=== PATIENT | male | born 1940 | race Caucasian/White ===

== ENCOUNTER → 2017-07-22 | Outpatient (CLI) | payer MEDICARE ==
[2017-07-22 10:38] LABS: Blood Urea Nitrogen 21 mg/dL (9-20); Non-African American GFR(MDRD) >60 (>60 ml/min/1.73 sqM)
--- NOTE | 2017-07-22 13:26 | CT ---
EXAMINATION TYPE: CT angio neck DATE OF EXAM: 07/22/2017 HISTORY: Carotid stenosis COMPARISON: NONE CT DLP: 507 mGycm. Automated Exposure Control for Dose Reduction was Utilized. TECHNIQUE: CTA scan of the neck is performed with IV Contrast, patient injected with 65 ml mL of Omn ipaque 350, axial images are obtained, coronal and sagittal reformatted images are reviewed. Three-D reconstructed images are created on an independent workstation and reviewed. FINDINGS: Carotid/Vascular Structures: The left common carotid artery is patent. Minimal atherosclerosis is see n of the ostia of the left common carotid artery at its origin. However, at the carotid bulb there is total occlusion of the left common carotid just distal to the carotid bifurcation extending througho ut the cervical portions and proximal intracranial portions of the carotid artery with reconstitution of flow noted at the supraclinoid portion related to an intact [place] of [place]. There is a focal short segment area of stenosis measuring 8 mm in length of 80-90% of the proximal ri ght internal carotid artery just distal to the carotid bifurcation/carotid bulb. This is caused mostl y by noncalcific plaquing with minimal calcific plaquing identified. The vertebral arteries are codominant. No identified aneurysm is seen of the visualized intracranial vasculature. Vertebral arteries appear patent. Other: Moderate centrilobular emphysematous changes are seen at the lung apices as well as reticular linear opacities and subsegmental atelectasis. Reticular opacities may represent pulmonary fibrosis. Osseous structures appear intact with multilevel degenerative disc disease of the cervical spine. IMPRESSION: 1. Complete occlusion of the left internal carotid artery originating at the carotid bifurcation and extending throughout the neck with reconstitution in the supraclinoid portion of the intracranial int ernal carotid artery from an intact [place] of [place]. 2. High-grade 80-90% stenosis of the right internal carotid artery just distal to the carotid bulb me asuring 8 mm in length. Surgical consultation is recommended. A [place] message has been communicated to Rosie Zabala MD via the [facility] system on 07/22/2017 1:24 PM, Message ID [id number].
== END | disposition home or self-care (01) ==
LOC: RADCTMAIN 09:57
PROVIDERS: ATTEND Internal Medicine Interventional Cardiology
DX: I65.23 Occlusion and stenosis of bilateral carotid arteries (principal); I77.89 Other specified disorders of arteries and arterioles
CPT/HCPCS: 82565; 84520; 70498; Q9967

== ENCOUNTER → 2017-07-22 | Outpatient (CLI) | payer MEDICARE | END | disposition home or self-care (01) | LOC: LABPAT 09:55 | PROVIDERS: ATTEND Orthopaedic Surgery | DX: Z01.812 Encounter for preprocedural laboratory examination (principal); M16.12 Unilateral primary osteoarthritis, left hip | CPT/HCPCS: 70498; 82565; 84520; 86850; 86900; 86901; 87070 ==

== ENCOUNTER → 2017-10-28 | Outpatient (CLI) | payer MEDICARE ==
[2017-10-28 11:41] LABS: Basophils % (A) 1 %; Eosinophils # (A) 0.2 k/uL (0-0.7); Eosinophils % (A) 2 %; HCT 44.4 % (39.0-53.0); HGB 14.7 gm/dL (13.0-17.5); Lymphocytes # (A) 1.6 k/uL (1.0-4.8); Lymphocytes % (A) 19 %; MCH 29.8 pg (25.0-35.0); MCHC 33.2 g/dL (31.0-37.0); MCV 89.7 fL (80.0-100.0); Mean Platelet Volume 7.7; Monocytes # (A) 0.5 k/uL (0-1.0); Monocytes % (A) 6 %; Neutrophils # (A) 6.3 k/uL (1.3-7.7); Neutrophils % (A) 72 %; Platelet Count 181 k/uL (150-450); RBC 4.95 m/uL (4.30-5.90); RDW 13.3 % (11.5-15.5); WBC 8.8 k/uL (3.8-10.6)
[2017-10-28 12:06] LABS: Potassium 4.3 mmol/L (3.5-5.1)
[2017-10-28 12:14] LABS: INR 1.1 (<1.2); Partial Thromboplastin Time 23.3 sec (22.0-30.0); Prothrombin Time 10.3 sec (9.0-12.0)
== END | disposition home or self-care (01) ==
LOC: LABPAT 11:00
PROVIDERS: ATTEND Orthopaedic Surgery
DX: Z01.812 Encounter for preprocedural laboratory examination (principal); M16.12 Unilateral primary osteoarthritis, left hip; Z79.01 Long term (current) use of anticoagulants
CPT/HCPCS: 36415; 80051; 85025; 85610; 85730; 86850; 86900; 86901; 87070

== ENCOUNTER 2017-11-07 10:25 | Inpatient (IN) | payer MEDICARE ==
[2017-11-03 10:25] VITALS: BMI 26.9
--- NOTE | 2017-11-06 16:09 | HP ---
HISTORY AND PHYSICAL Surgery 11/07/2017 Mynor Watts is 76-year-old patient seen with symptomatic left hip osteoarthritis. After treatment options were discussed, he elected to proceed with direct anterior left total hip arthroplasty. Consent regarding the procedure obtained. Cardiac clearance was provided by Dr. Zabala. Medical clearance provided by Dr. Osbaldo Koenig. PAST MEDICAL HISTORY: Insulin-dependent diabetes, cardiovascular disease. PAST SURGICAL HISTORY: Right total hip arthroplasty. Carotid endarterectomy. DAILY MEDICATIONS: Novolin insulin, omeprazole. ALLERGIES: None reported. SOCIAL HISTORY: Patient denies current tobacco use. PHYSICAL EXAMINATION: Evaluation left hip: There is limited range of motion with severe pain. Positive hip impingement sign. Straight leg raise is negative. Distal neurovascular exam is intact. RADIOGRAPHS: Left hip radiographs reveal severe osteoarthritis. IMPRESSION: 1. Left hip osteoarthritis. 2. Insulin-dependent diabetes. 3. Gastroesophageal reflux disease. 4. Cardiovascular disease. PLAN: Direct anterior left total hip arthroplasty. MMODL / IJN: [id number] /
[~2017-11-07 10:25] MED LIST: ACETAMINOPHEN TAB 500 MG TAB PO ONE; DEXAMETHASONE SOD PHOSPHATE 10 MG/ML 1 ML VIAL IV ONE; HYDROmorphone 0.5 MG/0.5 ML SYRINGE IVP PRN; MELOXICAM 7.5 MG TAB PO ONE; ONDANSETRON 4 MG/2 ML VIAL IVP ONE; TRANEXAMIC ACID 1,000 MG in SODIUM CHLORIDE 0.9% 50 ML IVPB ONE; ceFAZolin IN SWFI 2 GM/20 ML SYRINGE IVP ONE
[2017-11-07] MEDS ORDERED: LACTATED RINGERS 1,000 ML IV ONE ×2 (14:09→17:00)
[2017-11-07 14:10] LABS: Glucose,Whole Blood 118 mg/dL (75-99)
[2017-11-07] MEDS ORDERED: ROPIVACAINE 246.25 MG, EPINEPHrine 0.5 MG, KETOROLAC 30 MG, cloNIDine HCL/PF 80 MCG, WA... MISCELLANE ONE ×5 (14:44)
[2017-11-07] MEDS ORDERED: PROPOFOL 10 MG/ML 20 ML VIAL IV ONE (15:30)
[2017-11-07] MEDS ORDERED: TRANEXAMIC ACID 1,000 MG/10 ML VIAL ONE (15:30)
[2017-11-07] MEDS ORDERED: SUCCINYLCHOLINE CHLORIDE 100 MG/5 ML SYR IV ONE (15:30)
[2017-11-07] MEDS ORDERED: LIDOCAINE 1% INJ 10MG/ML (20 ML MDV) ONE (15:30)
[2017-11-07] MEDS ORDERED: HYDROmorphone (PF) 1 MG/ML ONE (15:30)
[2017-11-07] MEDS ORDERED: ROCURONIUM BROMIDE 10 MG/ML 10 ML VIAL IV ONE (15:30)
[2017-11-07] MEDS ORDERED: NEOSTIGMINE 1 MG/ML 10 ML VIAL ONE (15:30)
[2017-11-07] MEDS ORDERED: GLYCOPYRROLATE 0.2 MG/ML 2 ML VIAL ONE (15:30)
[2017-11-07] MEDS ORDERED: SODIUM CHLORIDE 0.9% 100 ML BAG ONE (15:30)
[2017-11-07] MEDS ORDERED: ePHEDrine SULFATE/0.9% NACL/PF 50 MG/5 ML SYRINGE IV ONE (15:30)
[2017-11-07] MEDS ORDERED: MIDAZOLAM 2 MG/2 ML VIAL ONE (15:30)
[2017-11-07] MEDS ORDERED: fentaNYL (PF) 50 MCG/ML 2 ML AMP ONE (15:30)
[2017-11-07] MEDS ORDERED: ceFAZolin 3,000 MG in SODIUM CHLORIDE 0.9% IRRIGATIO 3,000 ML IRRIGATION ONE (16:03)
[2017-11-07] MEDS ORDERED: HYDROcodone/APAP 7.5-325MG 1 EACH TAB PO PRN ×2 (17:31)
[2017-11-07] MEDS ORDERED: HYDROmorphone 0.5 MG/0.5 ML SYRINGE IVP PRN ×3 (17:31)
[2017-11-07] MEDS ORDERED: NALOXONE 0.4 MG/ML 1 ML VIAL IV PRN (17:31)
[2017-11-07] MEDS ORDERED: ONDANSETRON 4 MG/2 ML VIAL IVP PRN (17:31)
--- NOTE | 2017-11-07 17:31 | P.OP ---
Date of Procedure: 11/07/17 Preoperative Diagnosis: Left hip osteoarthritis Postoperative Diagnosis: Left hip osteoarthritis Procedure(s) Performed: Direct anterior left total hip arthroplasty Implants: 1. Depuy Corail KLA size 11 high offset collar press-fit femoral stem 2. Depuy pinnacle press-fit acetabular shell 56 mm 3. Depuy pinnacle polyethylene acetabular liner neutral 36 mm ID 56 mm OD 4. Depuy metal femoral head 36 mm -2 Anesthesia: ALA, local Surgeon: Jaylon Wilks Food Production Worker #1: Ke Lee Estimated Blood Loss (ml): 150 Pathology: other (Femoral head) Condition: stable Disposition: PACU Indications for Procedure: 76-year-old patient seen with symptomatic left hip osteoarthritis. After treatment options were discussed, he elected to proceed with total hip arthroplasty. Operative Findings: See description of procedure Description of Procedure: The patient was taken to the operative suite. Patient underwent a general anesthetic by the department of anesthesia. Patient was then transferred to the [place] table. Patient was given preoperative IV antibiotics and TXA. Both lower extremities were placed in standard leg spars. The hip was then prepped and draped in the normal sterile orthopedic fashion. A standard anterior incision was made beginning 3 cm lateral and 1 cm distal to the ASIS extending 10 cm. Dissection was then carried down through the subcutaneous soft tissues down to the fascia overlying the tensor fascia mary. An incision was now made through the fascia. Careful dissection was taken down exposing the tensor fascia mary muscle. A Cobra retractor was now placed along the medial femoral neck and a second one along the lateral femoral neck. The venous circumflex vessels were now identified, cauterized and clipped. We identified the anterior hip capsule. An incision was made through the hip capsule along the lateral border. Tag sutures were then placed along the anterior capsule and lateral capsule. We then performed a capsulotomy. Retractors were now placed around the femoral neck itself. A Cobra retractor was now placed along the anterior acetabulum. Good exposure was now noted of the femoral head/neck complex. Residual labrum was debrided out. We placed the extremity into 3 turns of fine traction. We were then able to introduce a skid in between the femoral head and acetabulum. A placed a awl into the femoral head. We took 2 turns of traction off the extremity. Rotation was now released. The femoral head was then dislocated without difficulty. Additional releasing was performed of the capsule. The head was then reduced. All traction was released. A femoral neck cut was now made with a sagittal saw. It was completed with an osteotome at the lateral neck area. The femoral head was now removed without difficulty. The extremity was now rotated to 60 of external rotation. It was locked in position. Residual labrum was now debrided out. Serial reaming was performed of the acetabulum. Once we reached the appropriate size and a trial was position and fit nicely. The appropriate size was now chosen opened and made available. The wound was irrigated with pulse lavage mechanical irrigation. The acetabular cup was introduced into the acetabulum without difficulty. The C-arm/fluoroscopy was now brought into the operative field. We made sure we had a true AP pelvic view. We now under direct C-arm/fluoroscopy introduced into the acetabular component with appropriate version and inclination. It was well seated and stable. The C-arm was pulled back. An appropriate liner was introduced and clicked into position. It was felt to be stable. At this point retractors were removed. The extremity was now placed into 120 external rotation with no traction. The leg was now dropped to the ground and adducted. Appropriate retractors were now positioned along the proximal femur. We also placed our femoral look into position. Additional capsular releasing was performed to gain access to the proximal femur. We now used a box osteotome. A canal finder was now utilized. Serial broaching was now performed until we reached the appropriate size with good overall rotational stability. Appropriate calcar planing was performed. A trial head/neck was placed into position. The hip was now reduced. The C-arm/fluoroscopy was brought back into the operative field. A spot film was obtained of the nonoperative hip. A spot film was obtained of the trial components. Overlays were performed, we noted good overall alignment and positioning for determining leg length. The C-arm/fluoroscopy was pulled back. Retractors were repositioned and the hip was dislocated. The leg was again taken down to the ground and adducted. Appropriate retractors were repositioned as well as the femoral hook. All trial components were removed. The wound was irrigated with pulse lavage mechanical irrigation. The deep soft tissues were infiltrated local analgesic. The femoral implant was opened along with the femoral head. The femoral implant was introduced with good purchase and fixation noted. The femoral head was introduced with good positioning and fixation noted. Retractors were now removed. The hip was now reduced. There appeared be good positioning of the hip. This was confirmed on fluoroscopy and spot films were obtained to document this. A second gram of TXA was given. Bipolar cautery had been utilized intermittently through the procedure for hemostasis. The wound was irrigated copiously with pulse lavage mechanical irrigation. The deep soft tissues were infiltrated with local analgesic. The superficial soft tissues were infiltrated local analgesic. The fascia was repaired with Vicryl suture. The subcutaneous soft tissues were repaired in layers with Vicryl suture. The skin was approximated with pernio/Dermabond. Sterile dressings were applied. Patient was then awakened, transferred to a bed and taken to recovery in stable condition. Graham SHIELDS assisted with the procedure.
--- NOTE | 2017-11-07 17:45 | FL ---
Fluoroscopy INDICATION: Pain FINDINGS: Fluoroscopy time: 27 seconds. Images obtained: 1. IMPRESSIONS: 1. Documentation of fluoroscopy.
[2017-11-07] MEDS ORDERED: INSULIN ASPART 100 UNIT/ML 1 ML 10 ML VIAL SQ ONE (18:13)
[2017-11-07 18:40] LABS: Glucose,Whole Blood 225 mg/dL (75-99)
[2017-11-07] MEDS: SODIUM CHLORIDE 0.9% 1,000 ML IV SCH (19:32)
[2017-11-07] MEDS ORDERED: SENNOSIDES-DOCUSATE SODIUM 1 EACH TAB PO SCH (21:00)
[2017-11-07] MEDS: LACTATED RINGERS 1,000 ML IV SCH (21:08)
[2017-11-07] MEDS: traMADol 50 MG TAB PO SCH ×2 (21:09→21:58)
[2017-11-07] MEDS: ceFAZolin IN SWFI 2 GM/20 ML SYRINGE IVP SCH (23:20)
[2017-11-08] MEDS: LACTATED RINGERS 1,000 ML IV SCH (04:40)
[2017-11-08 07:12] LABS: Glucose,Whole Blood 216 mg/dL (75-99)
[2017-11-08 07:31] LABS: Basophils % (A) 0 %; Eosinophils % (A) 0 %; HCT 34.4 % (39.0-53.0); Lymphocytes # (A) 1.4 k/uL (1.0-4.8); Lymphocytes % (A) 9 %; MCH 29.3 pg (25.0-35.0); MCHC 32.4 g/dL (31.0-37.0); MCV 90.3 fL (80.0-100.0); Mean Platelet Volume 7.9; Monocytes % (A) 7 %; Neutrophils # (A) 12.1 k/uL (1.3-7.7); Neutrophils % (A) 82 %; Platelet Count 167 k/uL (150-450); RDW 13.2 % (11.5-15.5); WBC 14.6 k/uL (3.8-10.6)
[2017-11-08 07:51] LABS: HGB 11.1 gm/dL (13.0-17.5)
[2017-11-08] MEDS: SODIUM CHLORIDE 0.9% 1,000 ML IV SCH (08:17)
[2017-11-08] MEDS: ceFAZolin IN SWFI 2 GM/20 ML SYRINGE IVP SCH (08:20)
[2017-11-08] MEDS: traMADol 50 MG TAB PO SCH ×2 (08:26→12:20)
[2017-11-08] MEDS ORDERED: MELOXICAM 7.5 MG TAB PO SCH (09:00)
[2017-11-08] MEDS ORDERED: ENOXAPARIN 40 MG/0.4 ML SYRINGE SQ SCH (09:00)
[2017-11-08] MEDS ORDERED: FAMOTIDINE 20 MG TAB PO SCH (09:00)
[2017-11-08] MEDS ORDERED: glipiZIDE 5 MG TAB PO SCH (09:45)
[2017-11-08] MEDS ORDERED: ATORVASTATIN 40 MG TAB PO SCH (09:45)
[2017-11-08] MEDS ORDERED: PANTOPRAZOLE 40 MG TABLET PO SCH (09:45)
[2017-11-08 11:55] LABS: Glucose,Whole Blood 225 mg/dL (75-99)
--- NOTE | 2017-11-08 12:00 | P.PN ---
Subjective Progress Note Date: 11/08/17 Principal diagnosis: Status post left total hip arthroplasty Patient seen today resting in his hospital bed, he appears comfortable. He's done well with physical therapy. Urinary catheter was removed, he was straight cathed initially, he has began to void on his own. He denies any headaches, lightheadedness, chest pain or shortness of breath. Objective - Vital Signs Vital signs: Vital Signs Temp 98.1 F 11/08/17 06:45 Pulse 68 11/08/17 06:45 Resp 16 11/08/17 07:29 BP 134/63 11/08/17 06:45 Pulse Ox 95 11/08/17 06:45 Intake & Output 11/07/17 11/08/17 11/08/17 18:59 06:59 18:59 Intake Total 1801 630 500 Output Total 150 500 250 Balance 1651 130 250 Intake: IV 1801 500 Sodium Chloride 0.9% 1, 500 000 ml @ 50 mls/hr IV . Q20H GILLES Rx#:[id number] Intake, IV Titration 150 Amount Sodium Chloride 0.9% 1, 150 000 ml @ 50 mls/hr IV . Q20H GILLES Rx#:[id number] Oral 480 Output: Urine 500 250 Estimated Blood Loss 150 - Exam Left lower extremity: Incision is clean, dry, and intact. The [prineo tape] is in good condition. [ There is minimal soft tissue swelling and ecchymosis surrounding the medial and lateral aspects of the incision.] Calf is soft, no tenderness with palpation. Plantar flexion, dorsiflexion, EHL, FHL are intact. Sensory exam to light touch throughout the extremity is intact, [dorsal pedis pulses 2+.] - Labs CBC & Chem 7: 11/08/17 06:38 Labs: Abnormal Lab Results - Last 24 Hours (Table) 11/07/17 11/07/17 11/08/17 Range/Units 14:06 18:11 06:38 WBC 14.6 H (3.8-10.6) k/uL RBC 3.80 L (4.30-5.90) m/uL Hgb 11.1 L D (13.0-17.5) gm/dL Hct 34.4 L (39.0-53.0) % Neutrophils # 12.1 H (1.3-7.7) k/uL POC Glucose (mg/dL) 118 H 225 H (75-99) mg/dL 11/08/17 11/08/17 Range/Units 07:10 11:52 WBC (3.8-10.6) k/uL RBC (4.30-5.90) m/uL Hgb (13.0-17.5) gm/dL Hct (39.0-53.0) % Neutrophils # (1.3-7.7) k/uL POC Glucose (mg/dL) 216 H 225 H (75-99) mg/dL Assessment and Plan Plan: Assessment: 1. Postop day #1 status post left total hip arthroplasty Plan: 1. Pain control, continue supportive oral medication 2. Wound care instructions were discussed 3. GI and DVT prophylaxis, will resume Plavix and aspirin after discharge 4. Medical recommendations 5. Home therapy and nursing after discharge 6. Discharge planning: Patient likely be discharged home today pending he continues to urinate on his own Time with Patient: Less than 30
--- NOTE | 2017-11-08 12:03 | P.DS ---
Providers Date of admission: 11/07/17 13:24 Expected date of discharge: 11/08/17 Attending physician: Jaylon Wilks Consults: 11/07/17 17:31 Consult Physician Routine Consulting Provider: Osbaldo Koenig Consult Reason/Comments: Medical management Do you want consulting provider notified?: Yes Primary care physician: Stated None Hospital Course: Date of admission: 11/07/2017 Date of discharge: 11/08/2017 Admission diagnosis: Status post left total hip arthroplasty Discharge diagnosis: Same Attending physician: Dr. Wilks Surgical procedures: Left total hip arthroplasty Brief history: Patient is a 76-year-old male with a history of progressive primary left hip osteoarthritis. At this point patient has failed conservative treatment measures and has opted to proceed with a elective left total hip arthroplasty. Hospital course: Details of patient's surgery can be found in operative report. Patient tolerated the procedure well and was subsequently transported to orthopedic floor. Patient's orthopeidc and medical care was provided daily. Patient had daily laboratory tests performed for evaluation of overall blood counts. Patient had daily physical therapy to include strengthening range of motion as well as education with walker ambulation. Patient was treated with Lovenox for their postoperative DVT prophylaxis during their inpatient stay. Patient was noted to have a relatively uneventful postoperative course. Patient reported satisfactory pain control with oral pain medications by postoperative day 0. Patient showed satisfactory progress with physical therapy. Patient moved steadily through the program and had no difficulty meeting the goals by postoperative day 1. Given patient's otherwise satisfactory course and having met physical therapy goals, plan is to discharge patient home on postoperative day 1. Discharge condition/disposition: Patient will be discharged home in stable condition. Discharge medications: Instructions are given on resumption of patient's normal daily medications per primary care recommendation, in addition patient will be prescribed . Discharge instructions: 1. Wound care and infection precautions, keep incision dry and covered while showering, no lotions, creams, moisturizers. No soaking, tubs, pools, hottubs. Do not scrub over the incision. 2. Weight-bear as tolerated with walker / cane until follow-up. 3. Ice and elevate when necessary. Do not exceed 20 minutes per hour with ice pack. 4. Utilize compression sleeve until seen at first follow up appointment. 5. Visiting nursing care. 6. Home physical therapy. 7. Pain meds and anticoagulants per prescription. 8. Pain medication has potential to cause constipation. Increase oral fluid and fiber intake. Contact primary care provider if you have not had a bowel movement within 48 hours after discharge 9. No anti-inflammatory medication until discussed at first post operative visit, this including Motrin, Aleve, Mobic, Diclofenac. 10. Follow up in office at 2 weeks postop with Graham Lee PA-C 11. Follow up with your primary care doctor 7-10 days after discharge. 12. Contact [facility] with any questions, . Procedures: Left total hip arthroplasty Patient Condition at Discharge: Good Plan - Discharge Summary Discharge Rx Participant: Yes New Discharge Prescriptions: New Docusate [Colace] 100 mg PO DAILY #30 capsule traMADol HCl [Ultram] 50 mg PO Q6H PRN #40 tab PRN Reason: Pain Aspirin 325 mg PO BID #60 tab No Action Simvastatin [Zocor] 80 mg PO DAILY Omeprazole [PriLOSEC] 20 mg PO AC-BRKFST Insulin NPH Human Isophane [NovoLIN N] 35 unit SQ HS glipiZIDE [Glucotrol] 5 mg PO AC-BID Clopidogrel [Plavix] 75 mg PO DAILY glipiZIDE [Glucotrol] 10 mg PO HS Discharge Medication List Insulin NPH Human Isophane [NovoLIN N] 35 unit SQ HS 10/15/15 [History] Omeprazole [PriLOSEC] 20 mg PO AC-BRKFST 10/15/15 [History] Simvastatin [Zocor] 80 mg PO DAILY 10/15/15 [History] Clopidogrel [Plavix] 75 mg PO DAILY 07/25/17 [History] glipiZIDE [Glucotrol] 5 mg PO AC-BID 07/25/17 [History] glipiZIDE [Glucotrol] 10 mg PO HS 11/03/17 [History] Aspirin 325 mg PO BID #60 tab 11/08/17 [Rx] Docusate [Colace] 100 mg PO DAILY #30 capsule 11/08/17 [Rx] traMADol HCl [Ultram] 50 mg PO Q6H PRN #40 tab 11/08/17 [Rx] Follow up Appointment(s)/Referral(s): Ke Lee PAC [PHYSICIAN SENIOR TELECOMMUNICATIONS TECHNICIAN] - 11/23/17 2:20 pm [facility] Visiting Nurse, [NON-STAFF] - Patient Instructions/Handouts: Anterior Hip Replacement (DC) Activity/Diet/Wound Care/Special Instructions: Orthopedic Discharge Instructions: 1. Wound care and infection precautions, keep incision dry and covered while showering, no lotions, creams, moisturizers. No soaking, pools, hot tubs. Do not scrub over incision. 2. Weight-bear as tolerated with walker / cane until follow-up. 3. Ice and elevate when necessary. Do not exceed 20 minutes per hour with ice pack. 4. Utilize compression sleeve until seen at first follow up appointment. 5. Visiting nursing care. 6. Home physical therapy. 7. Pain meds and anticoagulants per prescription. 8. Pain medication has potential to cause constipation. Increase oral fluid and fiber intake. Contact primary care provider if you have not had a bowel movement within 48 hours after discharge. 9. No anti-inflammatory medication until discussed at first post operative visit, this including Motrin, Aleve, Mobic, Diclofenac. 10. Follow up in office at 2 weeks postop with Graham Lee PA-C 11. Follow up with your primary care doctor 7-10 days after discharge. 12. Contact [facility] with any questions, . Discharge Disposition: HOME WITH HOME HEALTH SERVICES
[2017-11-08 14:51] VITALS: BP 129/64; PULSE 83; RESP 18; TEMP 97.9
[2017-11-08] MEDS ORDERED: INSULIN NPH 300 UNIT/3 ML VIAL SQ SCH (21:00)
[2017-11-08] MEDS ORDERED: glipiZIDE 10 MG TAB PO SCH (21:00)
== END 2017-11-08 15:12 | disposition home health service (06) | DRG 470 ==
LOC: 2ORMAIN 13:24 → 3SUR 17:23
PROVIDERS: ADMIT Orthopaedic Surgery; ATTEND Orthopaedic Surgery
PROC: 0SRB02A Replacement of Left Hip Joint with Metal on Polyethylene Synthetic Substitute, Uncemented, Open Approach (ICD-10-PCS; principal; 2017-11-07 16:15)
DX: M16.12 Unilateral primary osteoarthritis, left hip (principal); E11.9 Type 2 diabetes mellitus without complications; Z96.641 Presence of right artificial hip joint; I25.10 Atherosclerotic heart disease of native coronary artery without angina pectoris; K21.9 Gastro-esophageal reflux disease without esophagitis; Z79.4 Long term (current) use of insulin; Z79.899 Other long term (current) drug therapy
CPT/HCPCS: 73501; 85025; 86850; 86900; 86901; 88300

== ENCOUNTER → 2018-07-12 | Day surgery (SDC) | payer MEDICARE, OTHER ==
[2018-07-06 10:14] VITALS: BMI 25.8
[~2018-07-12] MED LIST changes: -ACETAMINOPHEN TAB 500 MG TAB PO ONE; +BUPIVACAIN-EPI 0.25%-1:200,000 30 ML VIAL SQ ONE; +HEPARIN SODIUM,PORCINE 5,000 UNIT/ML 1 ML VIAL SQ ONE; +HYDROcodone/APAP 5-325MG 1 EACH TAB PO PRN; -HYDROmorphone 0.5 MG/0.5 ML SYRINGE IVP PRN; +LACTATED RINGERS 1,000 ML IV SCH; +LIDOCAINE 1% INJ 10MG/ML (20 ML MDV) ONE; -MELOXICAM 7.5 MG TAB PO ONE; +NALOXONE 0.4 MG/ML 1 ML VIAL IV PRN; +PROPOFOL 10 MG/ML 20 ML VIAL IV ONE; +ROCURONIUM BROMIDE 10 MG/ML 10 ML VIAL IV ONE; +ROPIVACAINE 5 MG/ML 30 ML VIAL ONE; +SCOPOLAMINE 1.5MG/72HR PATCH TRANSDERM ONE; +SUCCINYLCHOLINE CHLORIDE 100 MG/5 ML SYR IV ONE; +TAMSULOSIN 0.4 MG CAP.ER.24H PO STA; -TRANEXAMIC ACID 1,000 MG in SODIUM CHLORIDE 0.9% 50 ML IVPB ONE; +ePHEDrine SULFATE/0.9% NACL/PF 50 MG/5 ML SYRINGE IV ONE; +fentaNYL (PF) 50 MCG/ML 2 ML AMP ONE
[2018-07-12 06:44] LABS: Glucose,Whole Blood 104 mg/dL (75-99)
--- NOTE | 2018-07-12 07:45 | P.GSHP ---
History of Present Illness H&P Date: 07/12/18 Chief Complaint: Bilateral hernia Please refer to office H&P. Patient presents with complaints of a left groin bulge. History of previous left open inguinal repair. Pain even with utilizing a truss lately. Was found incidentally to have a right inguinal hernia as well. No nausea or vomiting. No change in bowel habits. Past Medical History Past Medical History: Diabetes Mellitus, Eye Disorder, GERD/Reflux, Hearing Disorder / Deafness, Hyperlipidemia, Memory Impairment, Osteoarthritis (OA), Sleep Apnea/CPAP/BIPAP Additional Past Medical History / Comment(s): Uses CPAP, heart murmur, bilateral cataracts. History of Any Multi-Drug Resistant Organisms: None Reported Past Surgical History: Hernia Repair, Joint Replacement, Orthopedic Surgery Additional Past Surgical History / Comment(s): Bilateral hip replacements, arthroscopy left shoulder, numerous precancerous lesions removed from face and arms. Past Anesthesia/Blood Transfusion Reactions: No Reported Reaction Past Psychological History: No Psychological Hx Reported Smoking Status: Former smoker Past Alcohol Use History: None Reported Additional Past Alcohol Use History / Comment(s): Quit smoking 38 yrs. ago, 3ppd for 30 yrs. Past Drug Use History: None Reported - Past Family History Mother Sister(s) Family Medical History: Cancer Medications and Allergies Home Medications Medication Instructions Recorded Confirmed Type Insulin NPH Human Isophane 35 unit SQ HS 10/15/15 07/12/18 History [NovoLIN N] Omeprazole [PriLOSEC] 20 mg PO AC-BRKFST 10/15/15 07/06/18 History Simvastatin [Zocor] 80 mg PO DAILY 10/15/15 07/06/18 History Clopidogrel [Plavix] 75 mg PO DAILY 07/25/17 07/06/18 History glipiZIDE [Glucotrol] 5 mg PO AC-BID 07/25/17 07/06/18 History glipiZIDE [Glucotrol] 10 mg PO HS 11/03/17 07/12/18 History Docusate [Colace] 100 mg PO DAILY #30 capsule 11/08/17 07/06/18 Rx Aspirin [Adult Low Dose Aspirin EC] 81 mg PO DAILY 07/06/18 07/06/18 History Allergies Allergy/AdvReac Type Severity Reaction Status Date / Time No Known Allergies Allergy Verified 07/12/18 06:21 Surgical - Exam Vital Signs Temp Pulse Resp BP Pulse Ox 98.2 F 58 L 16 127/59 95 07/12/18 06:24 07/12/18 06:24 07/12/18 06:24 07/12/18 06:24 07/12/18 06:24 Physical exam: General: Well-developed, well-nourished HEENT: Normocephalic, sclerae nonicteric Abdomen: Nontender, nondistended small reducible right hernia, moderate-sized reducible left recurrent inguinal hernia Extremities: No edema Neuro: Alert and oriented Results - Labs Abnormal Lab Results - Last 24 Hours (Table) 07/12/18 Range/Units 06:42 POC Glucose (mg/dL) 104 H (75-99) mg/dL Assessment and Plan (1) Inguinal hernia Narrative/Plan: Will proceed with laparoscopic, possible open repair. Risks of bleeding, infection, recurrence, bladder and bowel injury, numbness, nerve injury, conversion to an open procedure were discussed with the patient. The patient understands and wishes to proceed. Current Visit: Yes Status: Acute Code(s): K40.90 - UNIL INGUINAL HERNIA, W/ O OBST OR GANGR, NOT SPCF RECUR SNOMED Code(s): 273143435
[2018-07-12 09:32] LABS: Glucose,Whole Blood 141 mg/dL (75-99)
--- NOTE | 2018-07-12 10:13 | P.ONQ ---
Anesthesiology Proc Note - PNB - Peripheral Nerve Block Performed Bilateral Transversus Abdominis Single Time Out Performed: Yes Procedure Start Time: 07:21 Procedure Stop Time: 07:30 Indication: Acute Post-Operative Pain, Analgesia, Dx/Pain Location, Requested by physician Sedation Type: Sedate with meaningful contact maintained Preparation: Sterile Prep Position: Supine Catheter: None Needle Types: [employer] Needle Size: 50mm (2") Needle Gauge: 20 Technique: Ultrasound Injectate: 0.5% Ropivacaine (see comment for volume) Blood Aspirated: No Pain Paresthesia on Injection Noted: No Resistance on Injection: Normal Events: Uneventful and Well Tolerated
[2018-07-12 10:15] VITALS: TEMP 99.2
[2018-07-12 10:23] LABS: Glucose,Whole Blood 183 mg/dL (75-99)
[2018-07-12] MEDS: HYDROmorphone 1 MG/ML 1 ML SYRINGE IVP PRN ×2 (10:28→10:46)
--- NOTE | 2018-07-12 10:29 | P.OP ---
Date of Procedure: 07/12/18 Procedure(s) Performed: PREOPERATIVE DIAGNOSIS: Recurrent left inguinal hernia, right inguinal hernia POSTOPERATIVE DIAGNOSIS: Same PROCEDURE: Laparoscopic repair recurrent left inguinal hernia and right inguinal hernia with the da Monster robot assistance with mesh SURGEON: Joyce EBL: Minimal ANESTHESIA: General COMPLICATIONS: None OPERATIVE PROCEDURE: Patient was placed in the operating table in the supine position. The patient was placed under general anesthesia. The patient was then placed in lithotomy. The abdomen was prepped and draped in usual sterile fashion. A vertical infraumbilical incision was made. The fascia was retracted anteriorly with Geetha forceps. The Veress needle was inserted. The saline drop test was normal. Insufflation took place to 15 mmHg. A 5 mm trocar was placed into the peritoneal cavity. This was later switched to a 8 mm trocar. 2 additional 8 mm trochars were placed in the right upper quadrant and left upper quadrant under visualization. The robotic arms were then brought in and docked into place. The fenestrated bipolar was used in the left arm and the laparoscopic luigi was utilized in the right arm. A 30 8 mm scope was used in the up position. The peritoneal cavity was inspected. The patient had a fairly large defect at the indirect space on the right. An additional large indirect hernia was seen on the left containing sigmoid colon. The right side was first addressed. The peritoneum was incised in a horizontal fashion cephalad to the internal inguinal ring. Following that careful dissection of the preperitoneal space took place. This took place using both electrocautery, sharp dissection but primarily blunt dissection. Visualization of the pubic tubercle and Mikael's ligament took place medially. Full dissection took place laterally as well. The hernia sac was fully dissected. At that time the left side was addressed in a similar fashion. This dissection was somewhat more challenging because of scarring from previous herniorrhaphy. I could visualize some sutures at the apex of the hernia sac. The sac was however fully reduced without difficulty. Once we had adequate space the 15 x 10 progrip mesh was advanced into the preperitoneal space and flattened out appropriately to cover all potential hernia sites bilaterally. No sutures were used. The peritoneal defect was then closed using a locking 2-0 VLok suture bilaterally. The sutures were then removed. The pneumoperitoneum was then evacuated. The skin of all 3 sites was closed using a 4-0 Monocryl stitch. Skin glue was then applied. DISPOSITION: Stable to recovery room
[2018-07-12 11:40] LABS: Glucose,Whole Blood 162 mg/dL (75-99)
[2018-07-12 11:59] VITALS: PULSE 70; RESP 18
[2018-07-12 13:02] VITALS: BP 175/83
== END ==
LOC: OR 05:38
PROVIDERS: ATTEND Surgery
DX: K40.91 Unilateral inguinal hernia, without obstruction or gangrene, recurrent (principal); K40.90 Unilateral inguinal hernia, without obstruction or gangrene, not specified as recurrent; K21.9 Gastro-esophageal reflux disease without esophagitis; E11.9 Type 2 diabetes mellitus without complications; Z79.4 Long term (current) use of insulin; G47.33 Obstructive sleep apnea (adult) (pediatric); Z99.89 Dependence on other enabling machines and devices; E78.5 Hyperlipidemia, unspecified; H91.90 Unspecified hearing loss, unspecified ear; R41.3 Other amnesia; M19.90 Unspecified osteoarthritis, unspecified site; Z87.891 Personal history of nicotine dependence; Z79.82 Long term (current) use of aspirin; Z79.02 Long term (current) use of antithrombotics/antiplatelets; Z79.891 Long term (current) use of opiate analgesic; Z79.899 Other long term (current) drug therapy
CPT/HCPCS: 49650; 49651; S2900; 64488

== ENCOUNTER 2020-03-30 10:59 | Emergency (ER) | payer OTHER ==
[2020-03-30] MEDS ORDERED: DEXTROSE 50% SYRINGE 50 ML IVP STA (11:19)
[2020-03-30 11:27] LABS: Glucose,Whole Blood 56 mg/dL (75-99)
[2020-03-30 11:41] LABS: Basophils % (A) 0 %; Eosinophils # (A) 0.3 k/uL (0-0.7); Eosinophils % (A) 3 %; HCT 42.8 % (39.0-53.0); HGB 13.6 gm/dL (13.0-17.5); Lymphocytes # (A) 1.4 k/uL (1.0-4.8); Lymphocytes % (A) 18 %; MCH 28.7 pg (25.0-35.0); MCHC 31.9 g/dL (31.0-37.0); MCV 89.9 fL (80.0-100.0); Mean Platelet Volume 8.1; Monocytes # (A) 0.6 k/uL (0-1.0); Monocytes % (A) 7 %; Neutrophils # (A) 5.7 k/uL (1.3-7.7); Neutrophils % (A) 70 %; Platelet Count 179 k/uL (150-450); RBC 4.76 m/uL (4.30-5.90); RDW 13.7 % (11.5-15.5); WBC 8.2 k/uL (3.8-10.6)
[2020-03-30 11:47] LABS: Albumin 3.9 g/dL (3.5-5.0); Calcium 8.9 mg/dL (8.4-10.2); Potassium 4.5 mmol/L (3.5-5.1); Total Bilirubin 0.4 mg/dL (0.2-1.3); Total Protein 6.9 g/dL (6.3-8.2)
[2020-03-30 11:50] LABS: Glucose,Whole Blood 222 mg/dL (75-99)
[2020-03-30 11:52] LABS: Partial Thromboplastin Time 24.7 sec (22.0-30.0); Prothrombin Time 10.5 sec (9.0-12.0)
[2020-03-30 12:14] LABS: Glucose,Whole Blood 149 mg/dL (75-99)
--- NOTE | 2020-03-30 12:25 | ED ---
Altered Mental Status HPI - General Chief Complaint: Altered Mental Status Stated Complaint: disoriented Time Seen by Provider: 03/30/20 11:09 Source: patient, RN notes reviewed Mode of arrival: wheelchair Limitations: no limitations - History of Present Illness Initial Comments: 79-year-old male presents emergency Department with chief complaint of con fusion. Patient has had some intermittent bouts of occasional glass several weeks to months but states that today it seemed to last longer. Patient was sitting in orthodoxy did not know where he was at, disorientated or why he was there. Patient states that he seems to be improving at this time. Patient has a known diabetic, history of hyperlipidemia. Patient is on insulin for his diabetes. He went to headache, blurred vision, focal weakness. Patient able to ambulate without difficulty. Patient offers no other complaints. - Related Data Home Medications Medication Instructions Recorded Confirmed Insulin NPH Human Isophane 35 unit SQ HS 10/15/15 03/30/20 [NovoLIN N] Omeprazole [PriLOSEC] 20 mg PO AC-BRKFST 10/15/15 03/30/20 Simvastatin [Zocor] 80 mg PO HS 10/15/15 03/30/20 Clopidogrel [Plavix] 75 mg PO DAILY 07/25/17 03/30/20 glipiZIDE [Glucotrol] 5 mg PO DAILY 07/25/17 03/30/20 Aspirin [Adult Low Dose Aspirin EC] 81 mg PO DAILY 07/06/18 03/30/20 Allergies Allergy/AdvReac Type Severity Reaction Status Date / Time No Known Allergies Allergy Verified 03/30/20 12:18 Review of Systems ROS Statement: Those systems with pertinent positive or pertinent negative responses have been documented in the HPI. ROS Other: All systems not noted in ROS Statement are negative. Past Medical History Past Medical History: Diabetes Mellitus, Eye Disorder, GERD/Reflux, Hearing Disorder / Deafness, Hyperlipidemia, Memory Impairment, Osteoarthritis (OA), Sleep Apnea/CPAP/BIPAP Additional Past Medical History / Comment(s): Uses CPAP, heart murmur, bilateral cataracts. History of Any Multi-Drug Resistant Organisms: None Reported Past Surgical History: Hernia Repair, Joint Replacement, Orthopedic Surgery Additional Past Surgical History / Comment(s): Bilateral hip replacements, arthroscopy left shoulder, numerous precancerous lesions removed from face and arms. Past Anesthesia/Blood Transfusion Reactions: No Reported Reaction Past Psychological History: No Psychological Hx Reported Smoking Status: Never smoker Past Alcohol Use History: None Reported Past Drug Use History: None Reported - Past Family History Mother Sister(s) Family Medical History: Cancer General Exam Limitations: no limitations General appearance: alert, in no apparent distress, other (Patient awake alert and orientated) Head exam: Present: atraumatic, normocephalic, normal inspection Eye exam: Present: normal appearance, PERRL, EOMI. Absent: scleral icterus, conjunctival injection, periorbital swelling ENT exam: Present: normal exam, normal oropharynx, mucous membranes moist Neck exam: Present: normal inspection, full ROM. Absent: tenderness, meningismus, lymphadenopathy Respiratory exam: Present: normal lung sounds bilaterally. Absent: respiratory distress, wheezes, rales, rhonchi, stridor Cardiovascular Exam: Present: regular rate, normal rhythm, normal heart sounds. Absent: systolic murmur, diastolic murmur, rubs, gallop, clicks GI/Abdominal exam: Present: soft, normal bowel sounds. Absent: distended, tenderness, guarding, rebound, rigid Extremities exam: Present: other (upper and lower extremity strength equal bilaterally 5/5 neurovascular intact) Neurological exam: Present: alert, oriented X3, CN II-XII intact, reflexes normal. Absent: motor sensory deficit Skin exam: Present: warm, dry, intact, normal color. Absent: rash Course Vital Signs 03/30/20 11:01 Temperature 97.8 F Pulse Rate 63 Respiratory 16 Rate Blood Pressure 161/73 O2 Sat by Pulse 96 Oximetry Medical Decision Making - Medical Decision Making 79-year-old male presented for about of confusion. Patient's blood sugar found to be 50. Patient was given an amp of dextrose and which symptoms immediately resolved. Workup including CT labs unremarkable otherwise. Patient is grossly discharge is stable he states he does normal baseline I did advise him to closely monitor his blood sugar and return for any worsening symptoms. - Lab Data Result diagrams: 03/30/20 11:25 03/30/20 11:25 Lab Results 03/30/20 03/30/20 03/30/20 Range/Units 11:18 11:25 11:25 WBC 8.2 (3.8-10.6) k/uL RBC 4.76 (4.30-5.90) m/uL Hgb 13.6 (13.0-17.5) gm/dL Hct 42.8 (39.0-53.0) % MCV 89.9 (80.0-100.0) fL MCH 28.7 (25.0-35.0) pg MCHC 31.9 (31.0-37.0) g/dL RDW 13.7 (11.5-15.5) % Plt Count 179 (150-450) k/uL Neutrophils % 70 % Lymphocytes % 18 % Monocytes % 7 % Eosinophils % 3 % Basophils % 0 % Neutrophils # 5.7 (1.3-7.7) k/uL Lymphocytes # 1.4 (1.0-4.8) k/uL Monocytes # 0.6 (0-1.0) k/uL Eosinophils # 0.3 (0-0.7) k/uL Basophils # 0.0 (0-0.2) k/uL PT 10.5 (9.0-12.0) sec INR 1.0 (<1.2) APTT 24.7 (22.0-30.0) sec Sodium (137-145) mmol/L Potassium (3.5-5.1) mmol/L Chloride (98-107) mmol/L Carbon Dioxide (22-30) mmol/L Anion Gap mmol/L BUN (9-20) mg/dL Creatinine (0.66-1.25) mg/dL Est GFR (CKD-EPI)AfAm (>60 ml/min/1.73 sqM) Est GFR (CKD-EPI)NonAf (>60 ml/min/1.73 sqM) Glucose (74-99) mg/dL POC Glucose (mg/dL) 56 L (75-99) mg/dL POC Glu Corn Cooker RISHABH Antwan Ingram Calcium (8.4-10.2) mg/dL Total Bilirubin (0.2-1.3) mg/dL AST (17-59) U/L ALT (4-49) U/L Alkaline Phosphatase (38-126) U/L Creatine Kinase (55-170) U/L Troponin I (0.000-0.034) ng/mL Total Protein (6.3-8.2) g/dL Albumin (3.5-5.0) g/dL 03/30/20 03/30/20 03/30/20 Range/Units 11:25 11:25 11:30 WBC (3.8-10.6) k/uL RBC (4.30-5.90) m/uL Hgb (13.0-17.5) gm/dL Hct (39.0-53.0) % MCV (80.0-100.0) fL MCH (25.0-35.0) pg MCHC (31.0-37.0) g/dL RDW (11.5-15.5) % Plt Count (150-450) k/uL Neutrophils % % Lymphocytes % % Monocytes % % Eosinophils % % Basophils % % Neutrophils # (1.3-7.7) k/uL Lymphocytes # (1.0-4.8) k/uL Monocytes # (0-1.0) k/uL Eosinophils # (0-0.7) k/uL Basophils # (0-0.2) k/uL PT (9.0-12.0) sec INR (<1.2) APTT (22.0-30.0) sec Sodium 139 (137-145) mmol/L Potassium 4.5 (3.5-5.1) mmol/L Chloride 109 H (98-107) mmol/L Carbon Dioxide 22 (22-30) mmol/L Anion Gap 8 mmol/L BUN 22 H (9-20) mg/dL Creatinine 1.15 (0.66-1.25) mg/dL Est GFR (CKD-EPI)AfAm 70 (>60 ml/min/1.73 sqM) Est GFR (CKD-EPI)NonAf 61 (>60 ml/min/1.73 sqM) Glucose 59 L (74-99) mg/dL POC Glucose (mg/dL) 222 H (75-99) mg/dL POC Glu Corn Cooker ID Antwan Ingram Calcium 8.9 (8.4-10.2) mg/dL Total Bilirubin 0.4 (0.2-1.3) mg/dL AST 24 (17-59) U/L ALT 16 (4-49) U/L Alkaline Phosphatase 79 (38-126) U/L Creatine Kinase 151 (55-170) U/L Troponin I <0.012 (0.000-0.034) ng/mL Total Protein 6.9 (6.3-8.2) g/dL Albumin 3.9 (3.5-5.0) g/dL 03/30/20 Range/Units 12:13 WBC (3.8-10.6) k/uL RBC (4.30-5.90) m/uL Hgb (13.0-17.5) gm/dL Hct (39.0-53.0) % MCV (80.0-100.0) fL MCH (25.0-35.0) pg MCHC (31.0-37.0) g/dL RDW (11.5-15.5) % Plt Count (150-450) k/uL Neutrophils % % Lymphocytes % % Monocytes % % Eosinophils % % Basophils % % Neutrophils # (1.3-7.7) k/uL Lymphocytes # (1.0-4.8) k/uL Monocytes # (0-1.0) k/uL Eosinophils # (0-0.7) k/uL Basophils # (0-0.2) k/uL PT (9.0-12.0) sec INR (<1.2) APTT (22.0-30.0) sec Sodium (137-145) mmol/L Potassium (3.5-5.1) mmol/L Chloride (98-107) mmol/L Carbon Dioxide (22-30) mmol/L Anion Gap mmol/L BUN (9-20) mg/dL Creatinine (0.66-1.25) mg/dL Est GFR (CKD-EPI)AfAm (>60 ml/min/1.73 sqM) Est GFR (CKD-EPI)NonAf (>60 ml/min/1.73 sqM) Glucose (74-99) mg/dL POC Glucose (mg/dL) 149 H (75-99) mg/dL POC Glu Corn Cooker ID Sharmila Chantal Calcium (8.4-10.2) mg/dL Total Bilirubin (0.2-1.3) mg/dL AST (17-59) U/L ALT (4-49) U/L Alkaline Phosphatase (38-126) U/L Creatine Kinase (55-170) U/L Troponin I (0.000-0.034) ng/mL Total Protein (6.3-8.2) g/dL Albumin (3.5-5.0) g/dL Disposition Clinical Impression: Hypoglycemia Disposition: HOME SELF-CARE Condition: Stable Instructions (If sedation given, give patient instructions): Hypoglycemia in a Person with Diabetes (ED) Additional Instructions: Please return to the Emergency Department if symptoms worsen or any other concerns. Is patient prescribed a controlled substance at d/c from ED?: No Referrals: Osbaldo Koenig DO [Primary Care Provider] - 1-2 days Time of Disposition: 13:04
--- NOTE | 2020-03-30 12:42 | XR ---
EXAMINATION TYPE: XR chest 2V DATE OF EXAM: 03/30/2020 COMPARISON: NONE HISTORY: Altered mental status and weakness. TECHNIQUE: Frontal and lateral views of the chest are obtained. FINDINGS: Reticular interstitial prominence bilaterally. Low lung volumes. There is no suspicious foc al air space opacity, pleural effusion, or pneumothorax seen bilaterally. The cardiac silhouette siz e is within normal limits. Degenerative change right glenohumeral joint noted. IMPRESSION: Suspect low lung volumes and chronic reticular parenchymal interstitial fibrotic changes . Correlate for IPF. No suspicious focal infiltrate. Old outside x-ray or CT would be beneficial for comparison.
--- NOTE | 2020-03-30 12:43 | CT ---
EXAMINATION TYPE: CT brain wo con DATE OF EXAM: 03/30/2020 HISTORY: Altered mental status CT DLP: 1087.4 mGycm. Automated Exposure Control for Dose Reduction was Utilized. TECHNIQUE: CT scan of the head is performed without contrast. COMPARISON: None. FINDINGS: There is no acute intracranial hemorrhage or midline shift identified. There is diffuse v entricular and sulcal prominence consistent with diffuse age-related cerebral atrophy. There is low- attenuation in the periventricular white matter consistent with chronic small vessel ischemic change. The globes are intact and the visualized sinuses are clear. IMPRESSION: No acute intracranial hemorrhage or midline shift. There is mild to moderate diffuse ce rebral atrophy and chronic small vessel ischemic change noted.
[2020-03-30 13:05] LABS: Glucose,Whole Blood 107 mg/dL (75-99)
[2020-03-30 13:16] VITALS: BP 170/78; PULSE 72; RESP 18; TEMP 98
[2020-03-30 13:34] LABS: Appearance,Urine Clear (Clear); Bilirubin,Urine Negative (Negative); Blood,Urine Negative (Negative); Color,Urine Light Yellow; Glucose,Urine (UA) 2+ (Negative); Ketones,Urine Negative (Negative); Leukocyte Esterase,Urine Negative (Negative); Nitrite,Urine Negative (Negative); Protein,Urine Negative (Negative); Specific Gravity,Urine 1.013 (1.001-1.035); Urobilinogen,Urine <2.0 mg/dL (<2.0)
== END 2020-03-30 13:18 | disposition home or self-care (01) ==
LOC: EC 10:59
DX: E11.649 Type 2 diabetes mellitus with hypoglycemia without coma (principal); R41.0 Disorientation, unspecified; G47.30 Sleep apnea, unspecified; M19.90 Unspecified osteoarthritis, unspecified site; K21.9 Gastro-esophageal reflux disease without esophagitis; H91.90 Unspecified hearing loss, unspecified ear; E78.5 Hyperlipidemia, unspecified; Z79.01 Long term (current) use of anticoagulants; Z79.82 Long term (current) use of aspirin; Z79.899 Other long term (current) drug therapy; Z79.84 Long term (current) use of oral hypoglycemic drugs; Z79.4 Long term (current) use of insulin; Z96.643 Presence of artificial hip joint, bilateral; Z99.89 Dependence on other enabling machines and devices
CPT/HCPCS: 36415; 70450; 71046; 80053; 81003; 82550; 84484; 85025; 85610; 85730; 93005; 96374; 99285

== ENCOUNTER → 2020-05-09 | Outpatient (CLI) | payer MEDICARE ==
--- NOTE | 2020-05-09 18:03 | ECHOF ---
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 This was a technically adequate study. The left ventricular size is normal. There is moderate concentric left ventricular hypertrophy. O verall left ventricular systolic function is normal with, an EF between 55 - 60 %. The diastolic fi lling pattern is normal for the age of the patient 11.45. The right ventricle is normal in size. Normal LA size by volume 22+/-6 ml/m2. The right atrial size is normal. There is [id number]-[id number] aortic regurgitation. There is mild aortic stenosis present. Peak/mean gradient across the Aortic Valve is 29.57mmHg / 17.83mmHg. Can't exclude Bicuspid valve vs fused cu sp. Mild mitral annular calcification present. Mild mitral regurgitation is present. The tricuspid valve appears structurally normal. Mild tricuspid regurgitation present. Right vent ricular systolic pressure is normal at < 35 mmHg. There is no pulmonic regurgitation present. The aortic root size is normal. There is no pericardial effusion. CONCLUSIONS -------- 1. There is moderate concentric left ventricular hypertrophy. 2. Overall left ventricular systolic function is normal with, an EF between 55 - 60 %. 3. Normal LA size by volume 22+/-6 ml/m2. 4. There is trtp-uc-peaqsrbd aortic regurgitation. 5. There is mild aortic stenosis present. 6. Peak/mean gradient across the Aortic Valve is 29.57mmHg / 17.83mmHg. 7. Can't exclude Bicuspid valve vs fused cusp. 8. Mild mitral regurgitation is present. 9. Mild tricuspid regurgitation present. 10. There is no pericardial effusion. [employer] SOCIAL WORKER: Yumiko Jaramillo RDCS
== END | disposition home or self-care (01) ==
LOC: RADECHMAIN 13:46
DX: I08.3 Combined rheumatic disorders of mitral, aortic and tricuspid valves (principal)
CPT/HCPCS: 93306

== ENCOUNTER → 2020-07-24 | Outpatient (CLI) | payer MEDICARE ==
--- NOTE | 2020-07-24 11:13 | XR ---
EXAMINATION TYPE: XR chest 2V DATE OF EXAM: 07/24/2020 COMPARISON: Chest x-ray March 30, 2020 HISTORY: Cough. Chronic difficulty breathing. TECHNIQUE: Frontal and lateral views of the chest are obtained. FINDINGS: Somewhat low lung volumes redemonstrated. Residual interstitial changes throughout bilatera l lung redemonstrated greater in the periphery and in the bases. There is no suspicious new focal air space opacity, pleural effusion, or pneumothorax seen. The cardiac silhouette size remains within n ormal limits. The osseous structures are intact. IMPRESSION: Findings consistent with moderate to advanced pulmonary fibrosis suspicious for IPF rede monstrated. No new acute pulmonary process. No significant change from prior. Advise pulmonology refe rral.
== END | disposition home or self-care (01) ==
LOC: RADXRMAIN 10:41
PROVIDERS: ATTEND Otolaryngology
DX: R05 Cough (principal)
CPT/HCPCS: 71046

== ENCOUNTER → 2020-10-31 | Outpatient (CLI) | payer MEDICARE ==
--- NOTE | 2020-10-31 10:19 | CT ---
EXAMINATION TYPE: CT chest wo con DATE OF EXAM: 10/31/2020 COMPARISON: None HISTORY: No complaints at time of scan. CT DLP: 495.6 mGycm High-resolution noncontrast CT of the chest was performed with the patient in the prone and supine po sitions. Lung and mediastinal window settings are submitted. The lung volumes are diminished. There is moderate subpleural fibrosis seen throughout both lung fiel ds. Scattered bullae are noted. Mild bronchiectatic change noted. There is no evidence for airspace c onsolidation. No evidence of pulmonary nodule or mass. No evidence of pleural effusion. No evidence f or adenopathy. The heart is enlarged. Coronary artery calcifications. Upper abdomen unremarkable. IMPRESSION: The findings are likely on the basis of idiopathic pulmonary fibrosis.
== END | disposition home or self-care (01) ==
LOC: RADCTMAIN 08:10
PROVIDERS: ATTEND Internal Medicine Critical Care Medicine
DX: J84.10 Pulmonary fibrosis, unspecified (principal)
CPT/HCPCS: 71250